=== PATIENT | male | born 1985 | race Caucasian/White ===

== ENCOUNTER → 2021-04-08 | Outpatient (CLI) | payer BC ==
[~2021-04-08] MED LIST: PERCOCET 5-3251 EACH PO
[2021-04-08 18:17] LABS: ABSOLUTE EOSINOPHILS 0.3 thou/uL (0.0-0.7); ABSOLUTE MONOCYTES 0.6 thou/uL (0.0-1.2); ABSOLUTE NEUTROPHILS 4.2 thou/uL (1.6-8.1); BASOPHILS 0.5 %; EOSINOPHILS 3.3 %; HEMOGLOBIN 15.1 gm/dL (14.0-18.0); LYMPHOCYTES 37.3 %; MCH 29.4 pg (26.0-34.0); MCHC 33.6 g/dL (28.0-37.0); MCV 87.5 fL (80.0-100.0); MONOCYTES 7.1 %; MPV 7.9 fl. (7.2-11.1); NUCLEATED RBCS 0 /100WBC; PLATELET COUNT* 238 thou/uL (150-400); POLYS 51.8 %; RBC 5.15 mil/uL (4.50-6.00); RDW-CV 12.7 % (10.5-14.5); WBC 8.1 thou/uL (4.0-11.0)
[2021-04-08 18:35] LABS: ALBUMIN 4.1 g/dL (3.4-5.0); CALCIUM 8.8 mg/dL (8.5-10.1); CREATININE 1.1 mg/dL (0.6-1.3); POTASSIUM 3.5 mmol/L (3.5-5.1); TOTAL BILIRUBIN 0.5 mg/dL (<0.1-1.0); TOTAL PROTEIN 7.4 g/dL (6.4-8.2)
== END ==
LOC: M.RAD 16:55
PROVIDERS: ATTEND Internal Medicine
DX: R07.9 Chest pain, unspecified (principal)